=== PATIENT | male | born 1960 | race Caucasian/White ===

== ENCOUNTER 2021-04-16 17:02 | Outpatient (CLI) | payer SELFPAY ==
[2021-04-16] MEDS: 0.9% Saline Lock 10 ML Syringe IV (17:12)
[2021-04-16 17:14] VITALS: BP 114/64; PULSE 61; RESP 20; TEMP 37.2; O2SAT 94; BMI 31.0
[2021-04-16 18:24] VITALS: BP 114/70; PULSE 58; RESP 20; TEMP 37.1; O2SAT 97
[2021-04-16 19:19] VITALS: BP 103/61; PULSE 58; RESP 18; TEMP 37.4; O2SAT 95
== END 2021-04-16 19:24 | disposition home or self-care (01) ==
LOC: ICUOUT 17:03 → MS3 17:04
PROVIDERS: Referring Provider Nurse Practitioner Adult Health; Visit Provider Nurse Practitioner Adult Health
DX: U07.1 COVID-19 (principal)
CPT/HCPCS: J7050; M0243; A4216; Q0244